=== PATIENT | female | born 1970 | race Caucasian/White ===

== ENCOUNTER 2024-04-11 13:09 | Emergency (ER) | payer MEDICAID ==
[~2024-04-11] VITALS: Ht 154.9 cm; Wt 61.0 kg
[2024-04-11 13:12] VITALS: O2SAT 99
[2024-04-11] MEDS: KETOROLAC 15MG/ML VIAL IM ONE (15:50)
[2024-04-11] MEDS: ACETAMINOPHEN 325MG TABLET PO ONE (15:50)
[2024-04-11 15:52] VITALS: BP 114/69; PULSE 72; RESP 16; TEMP 36.78072; O2SAT 99
== END 2024-04-11 15:56 | disposition home or self-care (01) ==
LOC: ER 13:09
DX: M25.511 Pain in right shoulder (principal)
CPT/HCPCS: 99283; 29105; 73030; 96372; J1885; A4565